=== PATIENT | female | born 1940 | race African-American/Black ===

== ENCOUNTER 2019-05-03 17:33 | Inpatient (IN) | payer OTHER ==
[~2019-05-03] VITALS: Ht 152.4 cm; Wt 84.9 kg
[2019-05-03 17:44] VITALS: BP 171/93
[2019-05-03 18:21] LABS: ABSOLUTE NEUTROPHILS 8.9 thou/uL (1.4-8.2); BASOPHILS 0.6 % (0.0-2.0); EOSINOPHILS 0.4 % (0.0-3.0); HEMATOCRIT 40.2 % (37.0-47.0); HEMOGLOBIN 13.2 gm/dL (12.0-15.0); MCH 30.6 pg (26.0-34.0); MCHC 32.8 g/dL (28.0-37.0); MCV 93.3 fL (80.0-100.0); MONOCYTES 5.5 % (1.0-8.0); PLATELET COUNT 241 thou/uL (150-400); POLYS 80.5 % (36.0-66.0); RDW 12.9 % (10.5-14.5)
[2019-05-03 18:29] LABS: ANION GAP 10 mmol/L (7-16); BUN 13 mg/dL (7-18); CALCIUM 9.4 mg/dL (8.5-10.1); CHLORIDE 103 mmol/L (98-107); CO2 28 mmol/L (21-32); CREATININE 1.2 mg/dL (0.6-1.0); GLUCOSE 137 mg/dL (74-106); POTASSIUM 3.7 mmol/L (3.5-5.1); SODIUM 141 mmol/L (136-145)
[2019-05-03 18:37] LABS: AMP/METHAMP Negative (Negative); BARBITURATES Negative (Negative); BENZODIAZEPINES Negative (Negative); COCAINE Negative (Negative); METHADONE Negative (Negative); OPIATES Negative (Negative); PCP Negative (Negative)
[2019-05-03 18:38] LABS: TROPONIN-I <0.06 ng/mL (<0.06)
[2019-05-03 18:41] LABS: URINE BILIRUBIN NEGATIVE (Negative); URINE BLOOD 3+ (Negative); URINE CLARITY CLEAR; URINE COLOR YELLOW; URINE GLUCOSE-RANDOM* NEGATIVE (Negative); URINE KETONES NEGATIVE (Negative); URINE NITRITE-REFLEX NEGATIVE (Negative); URINE PROTEIN (DIPSTICK) 2+ (Negative); URINE SPECIFIC GRAVITY 1.025 (1.005-1.035)
[2019-05-03 18:44] LABS: URINE LEUKOCYTES-REFLEX 1+ (Negative)
[2019-05-03 18:53] LABS: BACTERIA-REFLEX 1-9 Few /HPF (None Seen); CASTS None Seen /LPF (None Seen); CRYSTALS None Seen /LPF (None Seen); SQUAMOUS 0-3 Few /LPF (0-3); URINE RBC >20 Many /HPF (0-2); URINE WBC-REFLEX 6-15 Few /HPF (0-5); WBC CLUMPS Few (None Seen)
[2019-05-03 18:54] LABS: ALBUMIN 3.2 g/dL (3.4-5.0); DIRECT BILIRUBIN 0.2 mg/dL (<0.1-0.3); TOTAL BILIRUBIN 0.6 mg/dL (<0.1-1.0); TOTAL PROTEIN 8.7 g/dL (6.4-8.2)
[2019-05-03] MEDS ORDERED: MEMANTINE H2 MG/1 ML PO (19:17)
[2019-05-03] MEDS ORDERED: AMLODIPINE BESY10 MG PO (19:17)
[2019-05-03] MEDS ORDERED: FUROSEMIDE 40 M40 MG PO (19:17)
[2019-05-03] MEDS ORDERED: DONEPEZIL HCL 55 M1 PO (19:17)
[2019-05-03] MEDS ORDERED: LEVO-T100 MCG PO (19:22)
[2019-05-03] MEDS ORDERED: LOSARTAN POTAS100 MG PO (19:23)
[2019-05-03] MEDS ORDERED: CARVEDILOL25 MG PO (19:25)
[2019-05-03 19:37] VITALS: BP 179/72
[2019-05-03 20:12] VITALS: BP 163/65
[2019-05-03 20:30] VITALS: BP 171/107
[2019-05-03 21:42] LABS: FOLIC ACID 10.2 ng/mL (8.6-58.9)
--- NOTE | 2019-05-03 23:18 | NUR ---
PATIENT WAS A NEW ADMISSION TO THE UNIT THIS SHIFT. SHE ARRIVED VIA CART FROM ER WITH FAMILY AND WAS TRANSFERRED TO THE BED WITHOUT INCIDENT. PATIENT IS ALERT TO SELF AND VERY CONFUSED. SHE IN UNABLE TO EFFECTIVELY CALL FOR NEEDS OR PARTICIPATE IN ADMISSION. ASSESSMENT UNREMARKABLE. PATIENT STARTED ON IVF AND ANTIBIOTICS. NURSE TO COMPLETE ADMISSION AND INITIATE PLAN OF CARE.
[2019-05-04 04:42] VITALS: BP 176/70
[2019-05-04 06:10] LABS: CALCIUM 8.8 mg/dL (8.5-10.1); CREATININE 0.9 mg/dL (0.6-1.0); POTASSIUM 3.4 mmol/L (3.5-5.1)
[2019-05-04 07:53] VITALS: BP 157/77
--- NOTE | 2019-05-04 08:46 | EKG ---
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
--- NOTE | 2019-05-04 13:46 | NUR ---
ASSUMED CARE OF PT AT 0700. PT IS VERY INCONTINIENT AND DOES NOT EXPRESS THE NEED TO USE THE BATHROOM. PT IS VERY CONFUSED TO PLACE, TIME AND PERSON BUT IS AWAKE AND ALERT. PTS DAUGHTER EXPRESSED THAT THE PT HAS PAIN IN HER R KNEE AND THE BACK OF HER R CALF. WILL FOLLOWUP WITH THE DOCTOR TO SEE IF A XRAY CAN BE ORDERED. PT WORKED WITH PT AND SAT HER IN THE CHAIR. PT WAS INCONTINENT ON HERSELF, THE CHAIR AND THE FLOOR. PTS DAUGHTER ADVISED THAT PT WILL HOLD SALIVIA IN HER MOUTH AND TO MONITOR THE PT. BED IN THE LOWEST POSITION. CALL LIGHT WITHIN REACH AND FALL PRECAUTIONS IN PLACE. WILL CONTINUE TO MONITOR THE PT.
--- NOTE | 2019-05-04 14:59 | NUR ---
met with patient who has hx of dementia. Sp with dtr. Dtr resides in patients home. She reports family always there she is not alone. Dtr reports with the dementia she was able to stand and walk independently. she was able to open refrigerator and make a snack. dtr reports the weakness and increase confusion new. she reports her mother was not incontinent she was able to ambulate to bathroom and independent with toileting. dtr reports she was recently dc from [facility] and they did not inform her patient has a UTI. Discussed therapy evalution and dtr interested in post acute care. Dtr to review skilled list. She has [facility] plan no auth to be rec over weekend. Dtr to tour.
[2019-05-04 17:21] VITALS: BP 167/72
[2019-05-04 20:29] VITALS: BP 140/66
--- NOTE | 2019-05-05 04:49 | NUR ---
PT IS AWAKE.DOES NOT SAY MUCH. PT WILL ONLY SAY 'AM COLD', OR 'MY KNEE HURTS' WHEN BEING REPOSITIONED. SHE HAS BEEN INCONTINENT OF URINE. EXTERNAL CATHETER PLACED. PT WITH SLIGHT FEVER AT START OF SHIFT-TYLENOL GIVEN. FEVER RESOLVED.L KNEE LOOKS SWOLLEN.SKIN IS INTACT. WILL CONTINUE WITH POC TILL EOS.
[2019-05-05 07:50] VITALS: BP 146/69
[2019-05-05 08:38] VITALS: BP 146/69
[2019-05-05 15:54] VITALS: BP 131/81
--- NOTE | 2019-05-05 18:32 | NUR ---
THIS NURSE ASSUMED CARE OF PATIENT AT 0700 TODAY. SHE IS PLEASANTLY CONFUSED A&OX1. FAMILY PRESENT MOST OF THE DAY. SHE WAS REPOSITIONED EVERY 2 HOURS. SHE REMIANED IN BED ALL DAY. GOAL FOR THE DAY WAS TO FOLLOW PLAN OF CARE. SHE VOICED NO CONCERNS. FAMILY VOICED CONCERN OF SWELLING TO LEFT KNEE. X RAY OBTAINED AND INDICATED FLUID ON KNEE BUT NO FX. SHE WAS ADMIN. PRN PAIN MEDICATION FOR KNEE WHICH WAS EFFECTIVE. SHE IS CURRENTLY RESTING QUIETLY IN BED WITH FAMILY PRESENT AND CALL LIGHT IN REACH.
--- NOTE | 2019-05-05 19:30 | NUR ---
I AGREE WITH NURSING ASSESSMENT AND NURSING NOTE.
[2019-05-05 20:12] VITALS: BP 147/67
--- NOTE | 2019-05-06 02:51 | NUR ---
ASSUMED CARE OF PT @1900 PT ASSESSED AT START OF SHIFT. A&O TO SELF WITH CONFUSION NOTED. FAMILY AT BEDSIDE DURING ASSESSMENT. EXTERNAL FEMALE CATH IN PLACE DUE TO INCONTINENCE. IV INTACT FLUIDS AND ABX INFUSING. TAKES MEDS CRUSHED WITH PUDDING. ROOM INFRONT OF NURSES STATION. FALL PREC IN PLACE AND HOURLY ROUNDING DONE. WILL CONT WITH POC TILL EOS.
[2019-05-06 09:17] VITALS: BP 155/68
[2019-05-06 10:23] LABS: CALCIUM 8.5 mg/dL (8.5-10.1); CREATININE 0.9 mg/dL (0.6-1.0); POTASSIUM 3.3 mmol/L (3.5-5.1)
--- NOTE | 2019-05-06 12:28 | NUR ---
Assumed care of pt at 0700. Pt alert and oriented to self only. Incontinent. External catheter in place. Q2h turn. Needs help with feeding. Pt's daughter left message to be called back about how the pt's night was. Pt's son now at bedside. States he will call pt's daughter and update her. Fall precautions in place. Will continue to monitor.
[2019-05-06 17:42] VITALS: BP 125/78
--- NOTE | 2019-05-06 17:59 | NUR ---
ASSUMED CARE AT 1300, SHIFT ASSESSMENT DONE, VSS. REPORTED KNEE PAIN, PRN TYLENOL GIVEN WITH APPLESAUCE. FAMILY AT BEDSIDE. DENIES ANY OTHER CONCERNS. WILL CONTINUE TO ASSESS AND ASSIST WITH ADLs NEEDED.
[2019-05-06 19:34] VITALS: BP 133/54
[2019-05-07 04:00] VITALS: BP 159/122
--- NOTE | 2019-05-07 05:24 | NUR ---
PT ALERT TO SELF. SHE DOES NOT SPEAK MUCH. GOOD U/O. LIGHT YELLOW VIA EXTERNAL FEMALE CATHETER. Q2HR TURN PROVIDED. GIVEN TYLENOL FOR FEVER.
[2019-05-07 09:01] VITALS: BP 155/60
--- NOTE | 2019-05-07 15:31 | NUR ---
FAXED REFERRAL TO [facility] RECEIVED CONFIRMATION SPOKE WITH ARELIS SHE CAN ACCEPT AND WILL SUBMIT FOR AUTH. FAXED REFERRAL TO [facility] SPOKE WITH INTAKE AND THEY DO NOT HAVE ANY FEMALE BEDS AVAILABLE. FAXED REFERRAL TO [facility] RECEIVED CONFIRMATION AND LEFT MSG WITH BRIANDA IN ADM. FAXED REFERRAL TO [facility] RECEIVED CONFIRMATION AND LEFT MSG WITH BENNY THAT PT'S FAMILY LOOKING AT A FEW FACILITIES AND NOT TO SUBNIT FOR AUTH.
[2019-05-07 16:18] VITALS: BP 137/48
[2019-05-07 19:59] VITALS: BP 145/46
[2019-05-08 00:07] VITALS: BP 170/60
--- NOTE | 2019-05-08 04:47 | NUR ---
ASSUMED PATIENT CARE AT 2200. PATIENT IS DROWSY. SHE IS ORIENTED TO PERSON AND TO PLACE BUT IS CONFUSED OTHERWISE. ASSESSMENT CHARTED. MEDICATIONS GIVEN PER MAR. PATIENT DENIES PAIN BUT GRIMACED WHEN PAIN RELIEVING CREAM WAS APPLIED TO L KNEE. TEMPERATURE WAS ELVATED. TYLENOL GIVEN. PATIENT IS TO BE TURNED Q2HRS. PATIENT IS CLOSE TO NURSES STATION. WILL CONTINUE TO MONITOR PATIENT FOR FEVER AND WILL CONTINUE TO FOLLOW PLAN OF CARE.
[2019-05-08 05:10] VITALS: BP 134/53
[2019-05-08 08:10] VITALS: BP 116/63
[2019-05-08 14:14] LABS: ABSOLUTE NEUTROPHILS 7.1 thou/uL (1.4-8.2); EOSINOPHILS 1.4 % (0.0-3.0); HEMATOCRIT 34.6 % (37.0-47.0); HEMOGLOBIN 11.3 gm/dL (12.0-15.0); LYMPHOCYTES 16.9 % (24.0-44.0); MCH 30.4 pg (26.0-34.0); MCHC 32.7 g/dL (28.0-37.0); MONOCYTES 8.4 % (1.0-8.0); PLATELET COUNT 260 thou/uL (150-400); POLYS 72.3 % (36.0-66.0); RBC 3.72 mil/uL (4.20-5.00); RDW 12.9 % (10.5-14.5); WBC 9.8 thou/uL (4.0-11.0)
[2019-05-08 14:21] LABS: CALCIUM 8.8 mg/dL (8.5-10.1); MAGNESIUM 2.2 mg/dL (1.8-2.4); POTASSIUM 3.3 mmol/L (3.5-5.1)
--- NOTE | 2019-05-08 15:44 | NUR ---
UPDATE PROVIDED TO PT'S DTR THIS AM. AWAITING INS AUTH. PT HAD A TEMP THIS AM.
[2019-05-08 16:53] VITALS: BP 159/68
[2019-05-08 19:43] VITALS: BP 156/67
--- NOTE | 2019-05-08 21:13 | NUR ---
Assumed care of pt at 0700. Pt alert and oriented to self only. Incontinent. External female catheter in place. C/o bilateral knee pain. Topical med administered. Pt in chair. Refuses to go back to bed and exhibits marlee behavior (punching). Refuses morning meds and lab draws. Awaiting on insurance authorization. Q2h turn. Fall precautions in place. Report given to cleve parra.
--- NOTE | 2019-05-09 02:40 | NUR ---
ASSMUED PT CARE ON 05/08/19. PT IS ASLEEP IN ROOM. I WOKE HER AND TOLD HER THAT I WAS GOING TO GIVE HER HER MEDICATION. PT SAID THAT SHE WAS OKAY WITH TAKING HER MEDICATION. ONCE I GOT HER MEDICATION SCANNED SHE SAID THAT SHE DID NOT WANT TO TAKE HER MEDICATION. AFTER I GOT THE PUDDING SHE WILLINGLY TOOK HER MEDICATION. SHE REFUSED TO EAT MORE OF THE PUDDING. I RUBBED THE TOPICAL OINTMENT ON HER KNEES. I ASKED THE PT IS SHE WANTED TO GO TO BED. SHE TOLD ME THAT SHE WAS WARM AND WANTED TO STAY IN THE CHAIR. I ASKED HER IF I COULD CHECK HER CECILLE TO SEE IF SHE WAS WET AN SHE REFUSED. I ASKED IF SHE WANTED ME TO PUT THE OINTMENT ON HER KNEES LATER IN THE SHIFT SHE TOLD ME NO. WILL CONTINUE TO MONITOR.
[2019-05-09 08:21] VITALS: BP 139/108
[2019-05-09 09:59] LABS: HEMATOCRIT 32.4 % (37.0-47.0); HEMOGLOBIN 10.8 gm/dL (12.0-15.0); MCH 30.9 pg (26.0-34.0); MCHC 33.1 g/dL (28.0-37.0); MCV 93.1 fL (80.0-100.0); RBC 3.49 mil/uL (4.20-5.00); RDW 13.1 % (10.5-14.5); WBC 9.1 thou/uL (4.0-11.0)
[2019-05-09 10:03] LABS: CALCIUM 9.1 mg/dL (8.5-10.1); CREATININE 0.8 mg/dL (0.6-1.0); MAGNESIUM 2.3 mg/dL (1.8-2.4); POTASSIUM 3.9 mmol/L (3.5-5.1)
--- NOTE | 2019-05-09 14:13 | NUR ---
[facility] called and they have auth for snf admission. Update provided as pt ran a temp yesterday and elev CRP. Ortho consult pending for possible septic arthritis. DC timeframe is uncertain. Will update [facility] again tomorrow.
[2019-05-09 17:28] VITALS: BP 173/126
[2019-05-09 19:08] VITALS: BP 153/64
--- NOTE | 2019-05-09 19:58 | NUR ---
ASSUMED CARE OF PT AT 0700. PT REFUSED BREAKFAST AND LUNCH BUT WANTED WATER AND ICE ALONG WITH APPLESAUCE. GAVE PT APPLESAUCE TO EAT ALONG WITH MEDICATIONS. APPLIED TOPICAL KNEE CREAM TO BILATERAL KNEES. PT EXTERNAL CATHETER WAS EMPTIED AND URINE WAS LIGHT YELLOW. FLUIDS INFUSING AT 75MLS/HR. BED IN LOWEST POSITION. CALL LIGHT WITHIN REACH AND FALL PRECAUTIONS IN PLACE. GAVE REPORT TO NOC NURSE.
--- NOTE | 2019-05-10 05:54 | NUR ---
ASSUMED PT CARE ON 05/09/19. PT IS ORIENTED TO SELF. PT REFUSED TO BE TURNED. PT MUMBLES AND BECOMES NON REPONSIVE AT TIMES. PT IS INCONTINENT AND UNABLE TO EXPRESS WHEN SHE IS WET OR HAS USED THE RESTROOM. PT WILLINGLY TO HER MEDICATION. PT IS CALM AND HAS STATED THAT SHE WANTS US TO LEAVE HER ALONE. WILL CONITNUE TO MONITOR.
[2019-05-10 06:10] LABS: HEMATOCRIT 31.3 % (37.0-47.0); HEMOGLOBIN 10.6 gm/dL (12.0-15.0); MCH 31.3 pg (26.0-34.0); MCHC 33.8 g/dL (28.0-37.0); MCV 92.5 fL (80.0-100.0); RBC 3.38 mil/uL (4.20-5.00); RDW 12.8 % (10.5-14.5); WBC 8.9 thou/uL (4.0-11.0)
[2019-05-10 06:26] LABS: CALCIUM 8.6 mg/dL (8.5-10.1); CREATININE 0.8 mg/dL (0.6-1.0); MAGNESIUM 2.1 mg/dL (1.8-2.4); POTASSIUM 3.5 mmol/L (3.5-5.1)
[2019-05-10 07:33] LABS: URINE BILIRUBIN NEGATIVE (Negative); URINE BLOOD NEGATIVE (Negative); URINE CLARITY CLEAR; URINE COLOR YELLOW; URINE GLUCOSE-RANDOM* NEGATIVE (Negative); URINE KETONES NEGATIVE (Negative); URINE LEUKOCYTES NEGATIVE (Negative); URINE NITRITE NEGATIVE (Negative); URINE PROTEIN (DIPSTICK) NEGATIVE (Negative); URINE SPECIFIC GRAVITY 1.015 (1.005-1.035); URINE UROBILINOGEN 0.2 E.U./dl (0.2-1.0)
--- NOTE | 2019-05-10 13:15 | NUR ---
Nutrition: Assessed due to LOS. Here for AMS, UTI with provider notes also stating knee joint swelling. Per chart, pt has been febrile, ortho consult plus possible ID consult if fevers continue. Pt not interviewed this date, noted to be A&O to self only; dementia. PO intake sporadic at times, but for the most part, completing 75-100% of majority of meals. Meal Average: 78% across 7 meals recorded 05/05 - 05/08. He refused 2 meals yesterday per nsg notes, but had applesauce and water w/ meds. Went back to completing 100% of breakfast today for return to adequate po intake. No wt hx to review dating back 4 yrs. Recent BM 05/07. Given overall high meal intakes, will keep as low nutrition risk at present and check back for any decline.
--- NOTE | 2019-05-10 16:44 | NUR ---
S/W DTR BRANDY BY PHONE TO ALERT THAT DR ROCK IS WANTING TO ASPIRATE HER MOM'S KNEES TO CHECK TO SEE IF THERE IS AN INFECTION GOING ON OR WHAT. DTR CAME AND I S/W HER IN PERSON WELL. OBTAINED A LIST OF SUPPLIES THAT DR ROCK WANTS IN ORDER TO DO THE ASPIRATION. DTR IS WILLING TO SIGN THE PERMIT.
[2019-05-10 21:30] VITALS: BP 129/64
--- NOTE | 2019-05-11 01:38 | NUR ---
ASSUMED CARE OF PATIENT AT 1900. ANSWERS SIMPLE YES/NO QUESTIONS. TAKING PILLS CRUSHED IN APPLESAUCE. PLANS FOR NEEDLE ASPIRATION IN KNEES IN THE AM. RESTING WELL THROUGH THE NIGHT. PROGRESSING TOWARDS POC GOALS.
[2019-05-11 03:20] VITALS: BP 133/68
[2019-05-11 08:00] VITALS: BP 145/69
[2019-05-11 13:26] LABS: CLARITY CLOUDY; CLARITY TURBID; COLOR RED; SOURCE SYNOVIAL LFT KNEE; SOURCE SYNOVIAL RT KNEE; TOTAL VOLUME 18 mL; TOTAL VOLUME 9 mL
[2019-05-11 13:43] LABS: BF NUCLEATED CELLS 496; BF RBC 13912
[2019-05-11 13:47] LABS: BF NUCLEATED CELLS 1029; BF RBC 19361
[2019-05-11 14:57] VITALS: BP 132/75
[2019-05-11 15:06] LABS: BF MACROPHAGE 27; BF NEUTROPHILS 54
[2019-05-11 15:11] LABS: BF NEUTROPHILS 56
[2019-05-11 15:12] LABS: BF MACROPHAGE 7
--- NOTE | 2019-05-11 15:15 | NUR ---
ASSUMED CARE OF PT AT 0700. PT HAS EXTERNAL URINARY CATHETER THAT IS ATTACHED CORRECTLY. PT WAS COMBATIVE THIS MORNING WHEN TRYING TO TURN AND CHANGE CHUX. PT REFUSED TO EAT BREAKFAST AND LUNCH AND REFUSED A BATH. PT HAD A BM TODAY, NOT OBSERVED. PT SWALLOWED HALF OF MORNING MEDS AND SPIT OUT THE REST. BILATERAL KNEE TAP DONE AND CULTURES SENT TO LAB FOR ANALYSIS PER DOCTORS ORDERS. CONSULT CALLED IN TO DR. DE LEON. BED IN LOWEST POSITION. CALL LIGHT WITHIN REACH AND FALL PRECAUTIONS IN PLACE. WILL CONTINUE TO MONITOR THE PT.
[2019-05-11 22:00] VITALS: BP 153/74
[2019-05-12 04:30] VITALS: BP 133/61
--- NOTE | 2019-05-12 04:34 | NUR ---
PATIENT ALERT AND ORIENTED X1. SHE IS TOTAL CARE PATIENT HAS BEEN TURNED PER ORDER. INCONTINENT OF URINE AND EXTERNAL CATHETER CHANGED WELL SUCTION KIT ON THE WALL - WILL MONITOR. NO S/S OF PAIN. FAMILY AT BEDSIDE IN EARLY EVENING. PATIENT TOOK CRUSHED MEDICATION WITH APPLESAUCE AND COAXING. SOME AGGRESSION WHEN BEING TURNED, HOWEVER, NO CONTACT MADE. TOPICAL OINTMENT TO BILATERAL KNEES PER ORDER. RESTING QUIETLY AT TIME OF NOTE. WILL MONITOR.
[2019-05-12 06:54] LABS: ALBUMIN 2.1 g/dL (3.4-5.0); CALCIUM 8.9 mg/dL (8.5-10.1); CREATININE 0.7 mg/dL (0.6-1.0); TOTAL BILIRUBIN 0.3 mg/dL (<0.1-1.0); TOTAL PROTEIN 7.2 g/dL (6.4-8.2)
[2019-05-12 08:13] VITALS: BP 154/61
--- NOTE | 2019-05-12 15:21 | NUR ---
ASSUMED CARE OF PT AT 0700. PT IS VERY COMBATIVE WHEN TRYING TO CHANGE CHUX AND GOWN. GAVE PT A BATH WITH FAMILY IN THE ROOM. PT REFUSED HER MEDICATIONS THIS AM. APPLIED MEDICATION TO KNEES BILATERALLY. PT HAS REFUSED TO EAT BREAKFAST AND LUNCH. EXTERNAL CATHETER WAS CHANGED. BED IN LOWEST POSITION AND CALL LIGHT IS WITHIN REACH. FALL PRECAUTIONS IN PLACE. EXPLAINED TO THE FAMILY REGARDING PTS NUTRITION AND BEING COMBATIVE AND DAUGHTER UNDERSTOOD. WILL CONTINUE TO MONITOR THE PT.
[2019-05-12 16:06] VITALS: BP 149/66
[2019-05-12 22:30] VITALS: BP 133/64
--- NOTE | 2019-05-13 04:20 | NUR ---
PATIENT ALERT TO NAME. WILL LOOK AT NURSE AND SMILE ON OCCASSION. COOPERATIVE WITH TAKING EVENING MEDICATION WITH COAXING. EXTERNAL FEMALE CATHETER IN PLACE HOWEVER, LEAKAGE NOTED ON BED PAD. NOT COOPERATIVE WITH TURNS AND MOTIONS TO HIT WITH HER FISTS. NO S/S OF PAIN. RESTING QUIETLY AT TIME OF NOTE. FAMILY PRESENT AT BEGINNING OF SHIFT AND ASSISTED HER WITH EATING DINNER. WILL MONITOR.
[2019-05-13 10:39] LABS: HEMATOCRIT 33.5 % (37.0-47.0); MCH 30.5 pg (26.0-34.0); MCV 92.3 fL (80.0-100.0); RBC 3.63 mil/uL (4.20-5.00); RDW 12.7 % (10.5-14.5); WBC 12.7 thou/uL (4.0-11.0)
[2019-05-13 10:51] LABS: CALCIUM 9.1 mg/dL (8.5-10.1); CREATININE 0.8 mg/dL (0.6-1.0); MAGNESIUM 2.3 mg/dL (1.8-2.4); POTASSIUM 3.8 mmol/L (3.5-5.1)
[2019-05-13 17:22] VITALS: BP 167/87
[2019-05-13 19:27] VITALS: BP 148/70
--- NOTE | 2019-05-14 03:44 | NUR ---
PATIENT ALERT AND ORIENTED X2. COOPERATIVE WITH CARE IN EARLY EVENING WITH FAMILY AT BEDSIDE. EXTERNAL FEMALE CATHETER OPERATING WITH SOME INCONTINENCE DURING THE NIGHT. GIVEN TYLENOL X1 FOR TEMP WITH GOOD RESULTS. DENIES PAIN. RESTING QUIETLY. WILL MONITOR.
[2019-05-14 04:47] LABS: HEMATOCRIT 34.3 % (37.0-47.0); HEMOGLOBIN 11.1 gm/dL (12.0-15.0); MCH 29.8 pg (26.0-34.0); MCHC 32.5 g/dL (28.0-37.0); MCV 91.7 fL (80.0-100.0); RBC 3.73 mil/uL (4.20-5.00); RDW 12.9 % (10.5-14.5); WBC 12.2 thou/uL (4.0-11.0)
[2019-05-14 04:51] LABS: CALCIUM 9.4 mg/dL (8.5-10.1); MAGNESIUM 2.5 mg/dL (1.8-2.4); POTASSIUM 3.9 mmol/L (3.5-5.1)
[2019-05-14 07:11] VITALS: BP 153/65
--- NOTE | 2019-05-14 07:51 | HC ---
[facility] [place] [address] CONSULTATION Name: MARIO DEL TORO Room #: 446-P ADM IN M.R.#: [id number] Admission: 05/03/19 Attend Phys: Francine Javier Discharge: Date of : 40 Report #: [id number] THIS REPORT FOR: //name// CC: Francine SELBY Physician staff DATE OF SERVICE: 05/11/2019 CHIEF COMPLAINT: Bilateral knee pain. HISTORY OF PRESENT ILLNESS: This frail 78-year-old female with dementia, has been living at home with her daughter and has been able to ambulate and function in some limited fashion under her direction. Recently, she has become more ill and febrile and confused and also complains of bilateral knee pain and has more difficulty ambulating. She was admitted to the hospital and found to have urosepsis. X-rays of her knees demonstrate old bilateral total knee replacements, which appeared to be in good position without any evidence of fracture or loosening. There is, however, evidence of some edema and a moderate knee effusion bilaterally. At the time of my evaluation, she is difficult to assess given her dementia. She seems to be resting comfortably and does not appear to be septic at this time. Both knees are mildly puffy, but this is difficult to evaluate given her obesity. There seems to be a mild knee effusion in both knees. She notes some discomfort with manipulation and movement, although this is mild. There is no significant redness or warmth nor any other findings which would suggest significant infection. Her x-rays show satisfactory position of bilateral total knee replacements, but there is evidence of a moderate knee effusion bilaterally. I have discussed this with her daughter and reviewed further diagnostic and treatment options. It is difficult to exclude the possibility of infection given her urosepsis, although I think it is more likely this is simply an inflammatory synovitis. I think the best approach would be to go ahead with joint aspiration bilaterally. This was accomplished this morning without too much difficulty. She does not have a sizeable joint effusion and I returned only about 20 mL on the left knee and about 10 mL on the right knee. The fluid is yellow and only minimally turbid and more suggestive of inflammatory change. There is a little bit of blood simply from the needle stick. There is no clear or obvious evidence of purulent effusion. The specimens will be sent for cell count and culture on both the right and the left knee. At this time, I think she at least has an inflammatory synovitis, which should be managed with medications and anti-inflammatories and support. Certainly, she will continue with her general medical care for urosepsis. I doubt that we [address] [place] [address] CONSULTATION Name: MARIO DEL TORO LYNN Room #: 446-P ADM IN M.R.#: [id number] Admission: 05/03/19 Attend Phys: Francine Javier Discharge: Date of : 40 Report #: [id number] would want to be very aggressive with her knees and certainly would not favor major surgery or explantation. If she does have positive cultures, then I would favor suppression therapy with antibiotics if possible. We will continue to follow along, but at this point, I doubt any further orthopedic input unless cultures are clearly positive and findings become more severe. <ELECTRONICALLY SIGNED> By: Brayden Quintero MD 05/14/19 0751 1040 [id number] Brayden Quintero MD /nt
--- NOTE | 2019-05-14 15:47 | HC ---
[facility] [place] [address] CONSULTATION Name: MARIO DEL TORO Room #: 446-P ADM IN M.R.#: [id number] Admission: 05/03/19 Attend Phys: Francine Javier Discharge: Date of : 40 Report #: [id number] THIS REPORT FOR: //name// CC: Francine SELBY Physician staff DATE OF SERVICE: 05/11/2019 INFECTIOUS DISEASE CONSULTATION REASON FOR CONSULTATION: I was asked to evaluate concerning fever. HISTORY OF PRESENT ILLNESS: A 78-year-old with history of dementia, hypertension, hypothyroidism, who lives with her daughter who has noticed a decreased mental status change with poor appetite, refusing to eat much or take her medicines. She has just been more lethargic than typical. Family did not notice any fever, chills or sweats. She did complain of left greater than right knee pain. She has a previous history of bilateral total knee arthroplasties over 10 years ago. She was evaluated at [facility] on 04/30/2019. Unclear as to the diagnosis. Since hospitalization, she has had temperature up to 101 degrees. There has been no chills or sweats. Denies any cough or sputum production. There has been no chest pain. No nausea, vomiting or diarrhea. She is incontinent of urine. These have been swollen, left greater than right. No other rash or decubitus. No adenopathy reported. No allergy issues. No history of diabetes. REVIEW OF SYSTEMS: Full 10-point review of systems was negative other than what is described above. History was gleaned from the patient's daughter who was at the bedside. PAST MEDICAL HISTORY: Alzheimer dementia, bilateral total knee arthroplasties, mesh uterine prolapse repair, hypothyroidism, hypertension. ALLERGIES: None known. MEDICATIONS: Prior to her hospitalization included Lasix, amlodipine, Namenda, donepezil, levothyroxine, losartan, carvedilol, received 1 week of ceftriaxone since hospital stay. FAMILY HISTORY: Noncontributory. SOCIAL HISTORY: Nonsmoker, no significant alcohol intake. PHYSICAL EXAMINATION: VITAL SIGNS: She is afebrile and hemodynamically stable. Obese. [facility] [address] [place] [address] CONSULTATION Name: MARIO DEL TORO Room #: 446-P [facility] IN M.R.#: [id number] Admission: 05/03/19 Attend Phys: Francine Javier Discharge: Date of : 40 Report #: [id number] GENERAL: Alert and able to converse, although she was confused and was not consistent with answering. SKIN: Without rash or decubitus. No palpable adenopathy. HEENT: Eyes, without scleral icterus. Mouth, without mucositis. NECK: Supple. LUNGS: Clear. HEART: Regular, without murmur, gallop or rub. ABDOMEN: Soft, nontender, no hepatosplenomegaly or mass. GENITOURINARY: External genitalia without lesion. She had an external urinary catheter in place. RECTAL: Not performed. EXTREMITIES: Without clubbing, cyanosis or edema. Her left knee had 2+ effusion, right knee had 1+ effusion. She had pain on range of motion. Other joints appeared unremarkable. NEUROLOGIC: Cranial nerves were intact. The patient was able to answer questions, but was disoriented. She was able to move all extremities. BACK: Nontender. Mood relatively depressed. LABORATORY STUDIES: Reviewed. X-rays reviewed. Cultures reviewed. She underwent bilateral knee aspirations, which have revealed from the left 496 cells, 56% neutrophils; from the right 1029 WBC, 54% neutrophils. Gram stain and cultures are pending. I do not see that she has had crystals checked. IMPRESSION: A 78-year-old with underlying dementia presents with low-grade fever, bilateral knee arthritis and failure to thrive. There has been no improvement in her temperature curve despite 1-week of IV antibiotic therapy. Initial urinalysis showed few white cells and bacteria with urine culture showing E. coli. Repeat urinalysis was unremarkable. The fluid analysis from her knees is showing noninfectious inflammatory change. She has bilateral interstitial infiltrates, most consistent with edema. This has progressed over her hospital stay. No other evidence for intraabdominal source of infection noted at this point. Her white count is normal. Creatinine remained stable. RECOMMENDATIONS: 1. We will continue to observe off antibiotics. We will check liver function test, lipase. Sedimentation rate and ask laboratory to perform crystal analysis on the synovial fluid. 2. Trial of diuretic. 3. May need a trial of nonsteroidal anti-inflammatories. Following discontinuation of her antibiotics, will then be able to reculture if fevers persist. <ELECTRONICALLY SIGNED> By: Vito Coleman MD 05/14/19 1547 1849 [id number] Vito Coleman MD /nt
--- NOTE | 2019-05-14 16:35 | NUR ---
SPEAKS LITTLE. MEDS CRUSHED AND GIVEN IN APPLESAUCE. INCONTINENT OF BOWEL AND BLADDER; EXTERNAL FEMALE CATHETER IN PLACE AND PATENT. COMPLETE FEED, COMPLETE CARES. WILL CONTINUE TO MONITOR CLOSELY.
--- NOTE | 2019-05-14 16:50 | NUR ---
ASKED [facility] [employer] PRESS TENDER TO FAX UPDATES TO [facility]. FOLLOWING.
--- NOTE | 2019-05-14 17:09 | NUR ---
FAXED CLINICAL UPDATE TO [facility] SPOKE WITH ARELIS IN ADM SHE NEEDED PROG. NOTES ALSO AND WILL RESUBMIT FOR AUTH. DP TO FOLLOW.
[2019-05-14 17:14] VITALS: BP 158/66
[2019-05-14 19:40] VITALS: BP 148/71
--- NOTE | 2019-05-15 01:38 | NUR ---
ASSUMED CARE OF PATIENT AT 2100. ASSESSMENT CHARTED. MEDICATIONS GIVEN PER MAR. PATIENT IS MINIMALLY VERBAL, ONLY ANSWERING WITH "UH-UH" OR "UH-HUH". PATIENT REFUSED HER MEDICATIONS AT FIRST BUT WAS EVENTUALLY ABLE TO TAKE HER MEDS CRUSHED IN PUDDING. PATIENT HAD A SMALL BM THIS SHIFT. SHE WAS TURNED TO HER R SIDE AND WILL BE CONTINUED TO BE TURNED Q 2 HRS. SCD'S WERE PLACED BUT PATIENT BECAME ANXIOUS SO THEY WERE REMOVED. DICOFLENAC APPLIED TO BL KNEES. PATIENT COMPLAINS OF BEING COLD SO A WARM BLANKET WAS APPLIED. FALL PRECAUTIONS IN PLACE. PATIENT IS CLOSE TO NURSES STATION. WILL CONTINUE TO MONITOR AND FOLLOW POC
[2019-05-15 04:50] VITALS: BP 102/76
[2019-05-15 05:07] LABS: COMPLEMENT-C3 256 mg/dL (82-167); COMPLEMENT-C4 57 mg/dL (14-44)
--- NOTE | 2019-05-15 05:25 | NUR ---
TB TEST ADMINISTERED 05/15/19 AT 0500. TO BE CHECKED IN 48 HRS
[2019-05-15 05:29] LABS: HEMATOCRIT 34.4 % (37.0-47.0); HEMOGLOBIN 11.3 gm/dL (12.0-15.0); MCH 30.3 pg (26.0-34.0); MCHC 32.8 g/dL (28.0-37.0); MCV 92.6 fL (80.0-100.0); RBC 3.72 mil/uL (4.20-5.00); RDW 13.1 % (10.5-14.5); WBC 11.3 thou/uL (4.0-11.0)
[2019-05-15 05:42] LABS: CALCIUM 9.7 mg/dL (8.5-10.1); CREATININE 0.9 mg/dL (0.6-1.0); MAGNESIUM 2.7 mg/dL (1.8-2.4)
--- NOTE | 2019-05-15 06:02 | NUR ---
PATIENT HAS AN EXTERNAL BECERRIL CATHETER TO BE CHANGED Q8HRS. THIS SHIFT WAS CHANGED AT 0530.
[2019-05-15 08:10] VITALS: BP 131/61
[2019-05-15 10:07] LABS: HIV ANTIBODY Non Reactive (Non Reactive)
[2019-05-15 16:45] VITALS: BP 163/92
--- NOTE | 2019-05-15 18:45 | NUR ---
RECEIVED PT'S CARE AROUND 726; PT. ON BED; WATCHING TV; LOOKED WHEN CALLED NAME; DURING ASSESSMENT NODE "NO" WHEN ASKED IF HAVE PAIN; WHEN GIVEN MEDICATION PT. HOLD MEDICATION & FOOD IN MOUTH; INSTRUCTED TO SWALLOW; REFUSED; PHYSICIAN NOTIFIED; ORDERS RECEIVED; PT. REFUSED BREAKFAST & LUNCH; DAUGHTER AT THE BED SIDE DURING EVENING; PER DAUGHTER PT. ABLE TO SWALLOW FOOD THAT LIKES; PT. EATING POP CORN; REQUESTED ST; [facility] [place] ON HOLDING FOON IN MOUTH; REFUSED TURNING FROM SIDE TO SIDE; HAD LARGE BM; ASSESSMENT CHARGED; FOLLOWING POC; WILL PASS ON REPORT;
--- NOTE | 2019-05-16 04:33 | NUR ---
ASSUMED CARE OF PATIENT AT SHIFT CHANGE. PATIENT IS SLEEPING IN BED. ASSESSMENT CHARTED. PATIENT AROUSED TO TAKE MEDS IN PUDDING PER MAR. PATIENT DENIES PAIN AT THIS TIME. WILL BE REPOSITIONING PATIENT Q2HRS WHILE IN BED THIS SHIFT. PATIENT IS ONLY ALERT TO PERSON BUT NOT COMBATIVE THIS SHIFT. PATIENT DENIES PAIN OR NEEDS AT HIS TIME. FALL PRECAUTIONS IN PLACE. PATIENT CLOSES TO NURSES STATION. WILL CONTINUE TO MONITOR AND FOLLOW POC.
[2019-05-16 05:31] VITALS: BP 112/65
[2019-05-16 07:37] VITALS: BP 125/76
--- NOTE | 2019-05-16 08:01 | NUR ---
AT 0600 PATIENT WAS CHECKED TO SEE IF SHE HAD VOIDED. PATIENT HAD VERY LITTLE WETNESS. BLADDER SCAN REVEALED 329 ML'S OF URINE. WILL ENCOURAGE FLUIDS
--- NOTE | 2019-05-16 11:19 | NUR ---
ASSUMED CARE OF PT AT 0700. PT HAD MEDS CRUSHED IN APPLESAUCE. EXTERNAL BECERRIL IN PLACE. LAST BM 05/15. IV IN R FOREARM INTACT WITH NO DRAINAGE OR SWELLING. MINIMAL SWELLING IN BILATERAL KNEES. BED IS IN THE LOWEST POSITION AND CALL LIGHT IS WITHIN REACH. TELEVISION IS ON A DISTRACTION. FALL PRECAUTIONS ARE IN PLACE. WILL CONTINUE TO MONITOR THE PT.
[2019-05-16] MEDS ORDERED: NAPROXEN250 MG PO (13:44)
[2019-05-16] MEDS ORDERED: VOLTAREN GEL 1100 G1 TOP (13:44)
[2019-05-16] MEDS ORDERED: PROTONIX40 M2 PO (13:45)
--- NOTE | 2019-05-16 14:07 | NUR ---
Following for d/c planning needs. Called tool procurement coordinator at [facility]. She said she is waiting to hear back from insurance re: authorization.
[2019-05-16 15:34] VITALS: BP 137/62
[2019-05-16 19:51] VITALS: BP 143/53
--- NOTE | 2019-05-17 05:09 | NUR ---
ASSUMED CARE OF PATIENT AT SHIFT CHANGE. ASSESSMENT CHARTED. MEDS GIVEN PER MAR. PATIENT WAS GIVEN MEDS WITH ICE CREAM AND TOLERATED THEM WELL EVEN THOUGH SHE STATED "UH UH". SHE IS BEING COMPLIANT WITH REPOSITIONING. VSS. PATIENT IS RESTING AND VOICES NO OTHER NEEDS. FALL PRECAUTIONS IN PLACE. WILL CONTINUE TO MONITOR AND FOLLOW POC
--- NOTE | 2019-05-17 05:24 | NUR ---
READ TB RESULTS AT 0300. NEGATIVE RESULTS, NO INDURATION OR SWELLING/REDNESS AT SITE OF [place] TEST.
[2019-05-17 07:09] LABS: ANTI-RNP 0.2 AI (0.0-0.9)
[2019-05-17 07:16] VITALS: BP 133/64
[2019-05-17 08:10] VITALS: BP 133/64
--- NOTE | 2019-05-17 08:53 | NUR ---
Nutrition: Following for oral intake. Met w/ pt shortly after breakfast came. Awake, but not eating. Dementia; EMR frequently stating A&O to person only. Possible discharge today?- waiting on insurance before can d/c to care center. RD informed pt of meal's arrival, shared what variety of foods were there and offered to help open/assist w/ eating. She declined any help, declined to eat during RD's presence. Seemed sleepy. Encouraged pt to work on bites every meal as decreased energy/strength likely to continue without proper intake. Unsuccessful in obtaining food preferences. Averaging ~1/3 of meals lately. Unlikely to consume oral supplements given appearance of poor insight and/or motivation. Keep as low risk for now as added interventions unlikely to change po outcomes. Will monitor for ongoing po trends and any new weights taken.
--- NOTE | 2019-05-17 13:44 | NUR ---
DC ORDERS RECEIVED AND AUTH HAS BEEN RECEIVED. FAXED DC ORDERS & DC SUMMARY. S/W ARELIS IN ADMISSIONS. SHE WILL ARRANGE [facility] FOR [phone]. S/W DTR BRANDY TO ALERTY OF THE DC ARRANGEMENTS. PT GOING TO [facility] SK[facility].
--- NOTE | 2019-05-17 16:05 | NUR ---
DC ORDERS RECIEVED. IV REMOVED FROM L FA. ATTEMPT X2 TO GIVE REPORT TO [facility] WITH NO ANSWER, VOICE MESSAGE LEFT TO JESSICA TO RETURN CALL FOR REPORT. WAITING FOR STRETCHER VAN AT THIS TIME.
[2019-05-17 16:09] LABS: GLOBULIN TOTAL 4.5 g/dL (2.2-3.9); M-SPIKE Not Observed g/dL (Not Observed)
== END 2019-05-17 18:06 | DRG 682 ==
LOC: ER 17:33 → EROBS 19:22 → 4S 19:22
PROVIDERS: Emergency Medicine; Family Medicine; Internal Medicine; Nurse Practitioner; Nurse Practitioner Family; Orthopaedic Surgery; Specialist; ADMIT Hospitalist
DX: N17.0 Acute kidney failure with tubular necrosis (principal); G93.41 Metabolic encephalopathy; N39.0 Urinary tract infection, site not specified; I10 Essential (primary) hypertension; E86.0 Dehydration; G30.9 Alzheimer's disease, unspecified; F02.80 Dementia in other diseases classified elsewhere, unspecified severity, without behavioral disturbance, psychotic disturbance, mood disturbance, and anxiety; Z96.653 Presence of artificial knee joint, bilateral; E03.9 Hypothyroidism, unspecified; R62.7 Adult failure to thrive; B96.20 Unspecified Escherichia coli [E. coli] as the cause of diseases classified elsewhere; Z23 Encounter for immunization; Z68.36 Body mass index [BMI] 36.0-36.9, adult; Z79.899 Other long term (current) drug therapy
CPT/HCPCS: 10195

== ENCOUNTER 2020-06-27 19:51 | Inpatient (IN) | payer OTHER ==
[~2020-06-27] VITALS: Ht 167.6 cm; Wt 105.8 kg
[2020-06-27 19:51] VITALS: BP 130/66
[~2020-06-27 19:51] MED LIST: AMLODIPINE BESY10 MG PO; CARVEDILOL25 MG PO; DONEPEZIL HCL 55 M1 PO; FUROSEMIDE 40 M40 MG PO; LEVO-T100 MCG PO; LOSARTAN POTAS100 MG PO; MEMANTINE H2 MG/1 ML PO; NAPROXEN250 MG PO; PROTONIX40 M2 PO; VOLTAREN GEL 1100 G1 TOP
[2020-06-27 20:24] LABS: ABSOLUTE NEUTROPHILS 5.8 thou/uL (1.4-8.2); BASOPHILS 1.1 % (0.0-2.0); EOSINOPHILS 0.1 % (0.0-3.0); HEMATOCRIT 35.1 % (37.0-47.0); HEMOGLOBIN 11.8 gm/dL (12.0-15.0); LYMPHOCYTES 16.1 % (24.0-44.0); MCH 31.3 pg (26.0-34.0); MCHC 33.5 g/dL (28.0-37.0); MCV 93.4 fL (80.0-100.0); MONOCYTES 4.1 % (1.0-8.0); PLATELET COUNT 287 thou/uL (150-400); POLYS 78.6 % (36.0-66.0); RBC 3.76 mil/uL (4.20-5.00); RDW 13.8 % (10.5-14.5); WBC 7.4 thou/uL (4.0-11.0)
[2020-06-27 20:35] LABS: ANION GAP 11 mmol/L (7-16); BUN 13 mg/dL (7-18); CALCIUM 9.3 mg/dL (8.5-10.1); CHLORIDE 105 mmol/L (98-107); CO2 25 mmol/L (21-32); CREATININE 1.1 mg/dL (0.6-1.0); GLUCOSE 126 mg/dL (74-106); SODIUM 141 mmol/L (136-145)
[2020-06-27 20:45] LABS: DIRECT BILIRUBIN 0.1 mg/dL (<0.1-0.2); SGOT 49 U/L (15-37); SGPT 41 U/L (14-59); TOTAL BILIRUBIN 0.5 mg/dL (0.2-1.0); TOTAL PROTEIN 8.1 g/dL (6.4-8.2); TROPONIN-I <0.06 ng/mL (<0.06)
--- NOTE | 2020-06-27 20:52 | NUR ---
[facility], , BRANDY BARNEY [phone]
[2020-06-27 22:15] VITALS: BP 145/78
[2020-06-27 23:27] VITALS: BP 145/78
[2020-06-27 23:50] VITALS: BP 179/75
[2020-06-28] MEDS ORDERED: PREDNISONE 5 MG5 M1 PO ×2 (01:23→01:24)
[2020-06-28] MEDS ORDERED: KLOR-CON 10 ER10 MEQ PO (01:27)
[2020-06-28] MEDS ORDERED: LORAZEPAM 0.50.5 MG PO (01:29)
[2020-06-28] MEDS ORDERED: FUROSEMIDE 40 M40 MG PO (01:31)
[2020-06-28] MEDS ORDERED: AUGMENTIN 875-1 EACH PO (01:36)
[2020-06-28] MEDS ORDERED: SENNA PLUS TAB1 EACH PO (01:39)
[2020-06-28] MEDS ORDERED: LOSARTAN POTASS50 MG PO (01:42)
--- NOTE | 2020-06-28 03:28 | NUR ---
PT ADMITTED FROM ER. CONFUSED AND NONVERBAL. PT WILL FOLLOW SOME COMMANDS UPON REQUEST SUCH SQUEEZE MY HAND. NONCOOPERATIVE WITH TURNING. MOISTURE BARRIER APPLIED. NO SKIN BREAKDOWN NOTED, POTASSIUM IN INFUSING. LAB INSTRUCTED TO GET AM LABS AT AROUND 8 AM DUE TO 2 BAGS OF k WILL BE INFUSED OVER 4 HOURS. PT CURRENTLY SATTING 95% ON 2LNC. BED DOWN CALL LIGHT IN REACH. UNCOOPERATIVE WITH TAKING SIPS OF H20 . INFORMED Ceci VERAS FOLDER MACHINE. WILL HOLD PO MEDS. ST NEEDS TO EVALUATE.
[2020-06-28 05:07] VITALS: BP 152/118
[2020-06-28 06:05] LABS: URINE BILIRUBIN NEGATIVE (Negative); URINE BLOOD 1+ (Negative); URINE CLARITY CLEAR; URINE COLOR YELLOW; URINE GLUCOSE-RANDOM* NEGATIVE (Negative); URINE KETONES TRACE (Negative); URINE LEUKOCYTES NEGATIVE (Negative); URINE NITRITE NEGATIVE (Negative); URINE PROTEIN (DIPSTICK) 2+ (Negative); URINE SPECIFIC GRAVITY >= 1.030 (1.005-1.035)
[2020-06-28 06:32] LABS: SQUAMOUS >10 Many /LPF (0-3)
[2020-06-28 06:33] LABS: CASTS None Seen /LPF (None Seen); URINE WBC 0-5 Rare /HPF (0-5)
[2020-06-28 06:34] LABS: BACTERIA 1-9 Few /HPF (None Seen); CRYSTALS None Seen /LPF (None Seen); URINE RBC 0-2 Rare /HPF (0-2)
[2020-06-28 07:26] VITALS: BP 187/98
[2020-06-28 09:33] LABS: HEMATOCRIT 35.3 % (37.0-47.0); HEMOGLOBIN 11.6 gm/dL (12.0-15.0); MCH 31.3 pg (26.0-34.0); MCHC 32.9 g/dL (28.0-37.0); MCV 95.1 fL (80.0-100.0); RBC 3.71 mil/uL (4.20-5.00); RDW 13.9 % (10.5-14.5); WBC 8.5 thou/uL (4.0-11.0)
[2020-06-28 10:18] LABS: CALCIUM 9.2 mg/dL (8.5-10.1); CREATININE 0.9 mg/dL (0.6-1.0)
[2020-06-28 10:19] LABS: POTASSIUM 4.2 mmol/L (3.5-5.1)
[2020-06-28 11:12] VITALS: BP 154/83
--- NOTE | 2020-06-28 15:00 | NUR ---
PT CARE ASSUMED AT 0700, PT ALERT TO SELF, DISORIENTED TO PLACE, TIME AND SITUATION. PT IS APHASIC BARELY SAYS TOWARDS. ST CAME AND ASSESS PT, SUGGESTED TO KEEP PT NPO DUE TO COGNITIVE LEVEL. DR. NEVAREZ PAGED AND MADE AWARE.PT ON 2L OF OXYGEN, NO SIGNS OF DISTRESS NOTED. ORAL CARE AND REPOSITION DONE EVERY [address] FAMILY CALLED AND UPDATED ABOUT
[2020-06-28 15:25] VITALS: BP 160/90
[2020-06-28 19:03] VITALS: BP 192/87
--- NOTE | 2020-06-28 20:31 | NUR ---
BP ELEVATED 192/87. NOTIFIED NANNY CAREGIVER JOSELITO. NO ORDERS FOR NOW .SHE IS AWARE NEXT METOPROLOL DOSE IS AT MN Q 6 HRS.
[2020-06-29] VITALS (10 sets, daily range): BP systolic 131–193; BP diastolic 7–83
[2020-06-29 04:50] LABS: ABSOLUTE NEUTROPHILS 12.3 thou/uL (1.4-8.2); BASOPHILS 1.1 % (0.0-2.0); HEMATOCRIT 38.2 % (37.0-47.0); HEMOGLOBIN 12.4 gm/dL (12.0-15.0); MCH 30.6 pg (26.0-34.0); MCHC 32.4 g/dL (28.0-37.0); MCV 94.7 fL (80.0-100.0); MONOCYTES 4.1 % (1.0-8.0); PLATELET COUNT 340 thou/uL (150-400); POLYS 85.8 % (36.0-66.0); RBC 4.04 mil/uL (4.20-5.00); WBC 14.3 thou/uL (4.0-11.0)
--- NOTE | 2020-06-29 18:25 | NUR ---
ASSUMED PATIENT CARE AT 0700. ALERT. BP HIGH. PHYSICIAN AWEAR. FEBRILE. REFUSED TO HAVE O2 ON. RA 90-92%. SLOWLY TOWARDS POC GOALS.
[2020-06-30 04:53] VITALS: BP 161/91
--- NOTE | 2020-06-30 05:38 | NUR ---
ASSUMED CARE OF PATIENT AT 1900. VSS, AFEBRILE. ABLE TO ANSWER YES/NO QUESTIONS. NO S/S OF DISTRESS. RESTING THROUGH THE NIGHT. PROGRESSING SLOWLY TOWARDS POC GOALS.
[2020-06-30 07:30] VITALS: BP 182/83
--- NOTE | 2020-06-30 07:30 | EKG ---
[facility] [place] [address] [place] [address] ELECTROCARDIOGRAM REPORT Name: MARIO DEL TORO Room #: 354-P ADM IN M.R.#: [id number] Admission: 06/27/20 Attend Phys: Francine Javier Discharge: Date of : 40 Report #: [id number] [facility] ED Test Date: 2020-06-27 Test Time: 20:32:42 Pat Name: MARIO DEL TORO Department: Room: 354 Gender: F Health Care Analyst: GILBERT : 1940 Requested By: Tammy Cooley Order Number: [id number] MD: Fer Tavares Measurements Intervals Holly Rate: 75 P: DE: QRS: 23 QRSD: 108 T: 247 QT: 411 QTc: 460 Interpretive Statements Sinus rhythm Abnormal R-wave progression, early transition Nonspecific ST and T wave abnormality Compared to ECG 05/03/2019 18:05:20 No significant change was found Electronically Signed On 06-30-2020 7:30:15 [employer] by Fer Tavares [email or web address] <ELECTRONICALLY SIGNED> By: Fer Tavares MD, [facility] 06/30/2030 2032 31 Fer Tavares MD, FAC /EPI
[2020-06-30 11:13] VITALS: BP 157/72
[2020-06-30 15:23] VITALS: BP 132/80
--- NOTE | 2020-06-30 16:20 | NUR ---
INITIAL ASSESSMENT: Received consult for discharge planning. EDIE reviewed chart and spoke with nursing and attending physician. Pt was admitted from home due to hypoxia. Pt placed in Enhanced Isolation due to COVID-19. Pt is afebrile and on 3L of O2. Pt is on IV abx and IV steroids. Pt with hx of dementia. EDIE spoke with pt's dtr, Sheryl, via phone. Introduced role of EDIE. Pt lives at home with Sheryl. Prior to admission, pt was on service with [facility]. Sheryl states she signed revocation ppwk for pt to be admitted to the hospice for aggressive care. Pt has a hospital bed, BSC and home O2 in place through hospice. Pt's dtr states that the home O2 was ordered Tuesday and did not arrive prior to pt coming to the hospital due to hypoxia. Pt's dtr states that she will discuss the discharge plan with her siblings. Unsure if they may want to use a difference HH/hospice provider at time of discharge. EDIE spoke with Bobo at [facility] who confirmed that pt's dtr did revoke hospice. Revocation ppwk faxed to EDIE, which was faxed to [facility] to place in pt's chart. Pt's insurance cards also sent to registration for review, as pt is listed as uninsured. EDIE provided Sheryl's contact info to attending physician to follow up and discuss plan of care. EDIE is following to assist as needed with discharge planning.
[2020-06-30 19:47] VITALS: BP 149/84
[2020-07-01] VITALS (8 sets, daily range): BP systolic 147–191; BP diastolic 74–103
--- NOTE | 2020-07-01 04:19 | NUR ---
ASSUMED CARE OF PATIENT AT 1900. VSS, AFEBRILE. RESTING THROUGH THE NIGHT. PUREWICK CATHETER IN PLACE, WORKING WELL. NO S/S DISTRESS. PROGRESSING TOWARDS POC GOALS.
--- NOTE | 2020-07-01 11:36 | NUR ---
pt care assumed at 0700, alert to self, nonverbal and unable to follow commands. pt is on npo due failed ST eval. oral care done every 2 hours. reposition every [address].
--- NOTE | 2020-07-01 12:34 | NUR ---
PT BP IN THE 180'S, 170'S, LOPRESSOR IV GIVEN.
--- NOTE | 2020-07-01 14:17 | NUR ---
EDIE reviewed chart and spoke with nursing and attending physician. Pt remains in Enhanced Isolation due to COVID-19. Pt is afebrile and on 2L of O2. Pt is on IV abx. ST watson ordered to evaluate pt's swallowing. Per attending, pt will be ready to discharge back home in 1-2 days. EDIE spoke with pt's dtr, Sherly, via phone to discuss discharge. Sheryl states she has tested positive for COVID. Pt's son was tested today. Sheryl states that she would like for pt to be evaluated again for hospice and had questions regarding hospice v. HH. SW explained differences in levels of care and that hospice provides DME and some medications. HH does not. Pt's dtr verbalized understanding and would like for referral to be sent to [facility], as pt was on service with them prior to admission and they still have the DME in pt's home. Pt's dtr aware of anticipated discharge timeframe. EDIE faxed referral to [facility] and notified liaison, Enedina, of new referral. EDIE is following to assist as needed with discharge planning.
[2020-07-02 00:05] VITALS: BP 179/105
[2020-07-02 03:24] VITALS: BP 183/93
--- NOTE | 2020-07-02 04:51 | NUR ---
PT MAKING POOR PROGRESS TOWARDS GOALS. PT FREQUENTLY PULLING O2 CANNULA OUT OF POSITION. ATTEMPTED TO EXPLAIN USE OF/NEED FOR OXYGEN BUT UNABLE TO ASSESS PTS LEVEL OF UNDERSTANDING. NOTED O2 SAT 88-89% ON ROOM THOUGH. OCCASIONAL COUGH, NONPRODUCTIVE NOTED.
[2020-07-02 07:20] VITALS: BP 177/111
--- NOTE | 2020-07-02 07:26 | NUR ---
BP 177/111, Dr. Concepcion pennington, awaiting response.
[2020-07-02] MEDS ORDERED: SYNTHROID75 MCG PO (09:16)
[2020-07-02] MEDS ORDERED: LOSARTAN POTAS100 MG PO (09:41)
[2020-07-02] MEDS ORDERED: AUGMENTIN 875-1 EACH PO (09:41)
[2020-07-02] MEDS ORDERED: PREDNISONE 5 MG5 M1 PO (09:41)
[2020-07-02] MEDS ORDERED: LORAZEPAM 0.50.5 MG PO (09:41)
[2020-07-02] MEDS ORDERED: SENNA PLUS TAB1 EACH PO (09:41)
[2020-07-02] MEDS ORDERED: FUROSEMIDE 40 M40 MG PO (09:41)
[2020-07-02] MEDS ORDERED: KLOR-CON 10 ER10 MEQ PO (09:41)
[2020-07-02] MEDS ORDERED: DONEPEZIL HCL 55 M1 PO (09:41)
[2020-07-02] MEDS ORDERED: AMLODIPINE BESY10 MG PO (09:41)
[2020-07-02] MEDS ORDERED: CARVEDILOL25 MG PO (09:41)
--- NOTE | 2020-07-02 10:49 | NUR ---
EDIE reviewed chart and spoke with nursing and attending physician. Pt remains in Enhanced Isolation due to COVID-19. Pt is afebrile and on 3L of O2. Pt is on IV abx and IV steroids. Discharge orders/summary written today for pt to discharge home with [facility]. EDIE spoke with pt's dtr, Sheryl, via phone to provide update and discuss discharge plan. Sheryl states that pt's home is not ready for pt to return home today. Family is working on moving furniture and sanitizing her home. Pt's dtr with questions regarding quarantine period after discharge. Pt's dtr states she is coordinating witih her siblings for when pt returns home. Pt's family to drop off clothing for pt prior to discharge. Pt's family is able to provide transportation home tomorrow morning. Discharge is tentatively set for [id number] tomorrow morning. EDIE updated pt's nurse and attending physician. EDIE updated Enedina [facility] funeral director/embalmer/owner. Faxed discharge orders/summary to [facility] for review. EDIE is following to assist as needed with discharge planning.
--- NOTE | 2020-07-02 11:08 | NUR ---
Patient had v-tachy at 1031 AM, and also according to JANUSZ Mulligan, manager case management Dana called and voiced that this patient will not be discharged unitl tomorrow morning. Patricia De Jesus paged, awaiting response.
--- NOTE | 2020-07-02 11:37 | NUR ---
Dr. Warren talked to the nurse about the patient HR; Dr. Warren wanted the patient to be discharged today, will contact the case work aide about it.
--- NOTE | 2020-07-02 11:50 | NUR ---
Dana [phone] called, no response, left a voice mail that Brodie Warren wanted the patient to be discharged today.
[2020-07-02 11:57] VITALS: BP 160/71
--- NOTE | 2020-07-02 14:35 | NUR ---
According to Dana ( case specialist) , the patient will not be discharged until tomorrow morning, 10am -11am. will pass this on to the night nurse.
[2020-07-02 15:16] VITALS: BP 118/85
--- NOTE | 2020-07-02 17:31 | NUR ---
Bladder scan: [address] Kelvin pennington, awaiting response.
--- NOTE | 2020-07-02 18:08 | NUR ---
Straight catheter done, 450 ml urine out.
[2020-07-02 19:47] VITALS: BP 155/75
[2020-07-03 01:05] VITALS: BP 189/86
[2020-07-03 03:46] VITALS: BP 188/97
--- NOTE | 2020-07-03 05:24 | NUR ---
ASSESSMENT: ASSUMED CARE OF PT AT 0100, RECEIVED REPORT FROM BUSHRA BOUDREAUX. PT WAS SLEEPING AND DID HAVE NC ON. POSSIBLE DC TODAY TO HOME WITH HOSPICE. VSS, AFEBRILE. PT IS NPO PER ST, BUT ALLOWED TO HAVE A MECH GROUND DIET. DAUGHER AT HOME IS POSITIVE WITH COVID. PT ALERT AND ORIENT TIMES ONE. APHASIC, WILL TRACK AND FAVORS RIGHT SIDE. VERY STIFF TO MOVE FROM SIDE TO SIDE. LAST BM 07/01. BP ELEVATED THIS AM, METOPROLOL IS SCHEDULED THIS AM. POOR PROGRESS TOWARDS DC GOALS, WILL CONTINUE TO MONITOR.
[2020-07-03 07:27] VITALS: BP 189/103
--- NOTE | 2020-07-03 11:42 | NUR ---
PT ASSESSED AT START OF SHIFT. CALM AND MOSTLY COOPERATIVE BUT DOES NOT LIKE WEARING HER OXYGEN AND FREQUENTLY REMOVES. NO C/O PAIN. ABLE TO ANSWER YES/NO QUESTIONS. EXT FEMALE CATHETER IN PLACE. PT TO RETURN HOME W/ HOSPICE CARE THIS AM. NONEMERGENT AMBULANCE TO TRANSFER.
--- NOTE | 2020-07-03 11:43 | NUR ---
DISCHARGE NOTE: EDIE reviewed chart and spoke with nursing and attending physician. Pt remains in Enhanced Isolation due to COVID-19. Pt is medically stable for discharge home today with [facility]. Pt's family was planning on providing transportation home today. Pt's nurse states pt will need stretcher transportation due to weakness. EDIE spoke with pt's dtr, Sheryl and son, Kayode, via phone to discuss discharge plan. Both are aware and agreeable with SW arranging ambulance transportation home between [phone]. SW arranged ambulance through [facility] at [address]. [facility] aware pt is COVID positive. EDIE spoke with Linda at [facility] to notify of pt's discharge timeframe. Finalized discharge orders/summary faxed to [facility]. No additional SW needs identified at this time, but is available to assist should needs arise.
== END 2020-07-03 12:00 | disposition hospice, home (50) | DRG 177 ==
LOC: ER 19:51 → EROBS 21:49 → 3W 21:49
PROVIDERS: Emergency Medicine; Nurse Practitioner Family; ADMIT Hospitalist; ATTEND Hospitalist
DX: U07.1 COVID-19 (principal); J96.01 Acute respiratory failure with hypoxia; J12.89 Other viral pneumonia; G30.9 Alzheimer's disease, unspecified; F02.80 Dementia in other diseases classified elsewhere, unspecified severity, without behavioral disturbance, psychotic disturbance, mood disturbance, and anxiety; I10 Essential (primary) hypertension; E87.6 Hypokalemia; K21.9 Gastro-esophageal reflux disease without esophagitis; R13.10 Dysphagia, unspecified; E03.9 Hypothyroidism, unspecified; Z79.899 Other long term (current) drug therapy; Z28.21 Immunization not carried out because of patient refusal
CPT/HCPCS: 10879